=== PATIENT | female | born 1975 | race Caucasian/White ===

== ENCOUNTER 2025-05-13 00:34 | Emergency (ER) | payer MEDICAID ==
[~2025-05-13] VITALS: Ht 165.1 cm; Wt 84.0 kg
[2025-05-13 00:36] VITALS: O2SAT 98
[2025-05-13] MEDS: TETRACAINE 0.5% OPHTH DROPS 4ML BOTHEYE ONE (02:15)
[2025-05-13] MEDS: FLUORESCEIN SODIUM 1MG/STRIP BOTHEYE ONE (02:15)
[2025-05-13] MEDS ORDERED: ERYT1OIN6 LEFT EAR (04:11)
[2025-05-13 04:17] VITALS: BP 158/83; PULSE 70; RESP 18; TEMP 36.6; O2SAT 100
== END 2025-05-13 04:21 | disposition home or self-care (01) ==
LOC: ER 00:34
DX: H10.32 Unspecified acute conjunctivitis, left eye (principal); Z88.1 Allergy status to other antibiotic agents
CPT/HCPCS: 99283